=== PATIENT | female | born 1970 | race Caucasian/White ===

== ENCOUNTER 2016-03-15 16:56 | Emergency (ER) | payer BC ==
[~2016-03-15] VITALS: Wt 88.0 kg
[~2016-03-15 16:56] MED LIST: DOCU100T7 PO; FERR-55 PO; GLIP5TAB13 PO; HYDR-3498 PO; IBUP-1542 PO; INSU100C5 SQ; LISI10TA2 PO; METF-388 PO; PANT40TA4 PO
[2016-03-15 18:50] LABS: URINE BLOOD (Dip) POC Negative (NEGATIVE)
[2016-03-15] MEDS ORDERED: FLUC150T17 PO (19:06)
[2016-03-15] MEDS ORDERED: NYST15CR28 TOP (19:10)
[2016-03-15] MEDS ORDERED: NAPR-260 PO (19:11)
--- NOTE | 2016-03-15 19:26 | ERD ---
ER Documentation Chief Complaint Date/Time DATE: 03/15/16 TIME: 19:18 Chief Complaint right flank pain for the past 4 days. no n/v. HPI This patient is a 45-year-old female presenting to the emergency department for pain in the right mid back for 5 days. She additionally reports hematuria, burning while urinating and itching of the vagina for 2 weeks. She reports a history of past yeast infections treated successfully with Diflucan. She denies a history of pyelonephritis. She denies fevers, chills, chest pain, shortness of breath, and all other symptoms at this time. There are no other alleviating or exacerbating factors at this time. ROS All systems reviewed and are negative except as per history of present illness. Medications Home Meds Active Scripts Naproxen* (Naprosyn*) 500 Mg Tablet, 500 MG PO BID Y for PAIN AND/OR INFLAMMATION, #20 TAB Prov:HARSHAD LIAO PA-C 03/15/16 Nystatin* (Nystatin*) 15 Gm Cr, 1 APPLIC TOP QHS for 7 Days, #1 TUB Prov:HARSHAD LIAO PA-C 03/15/16 Fluconazole* (Diflucan*) 150 Mg Tablet, 150 MG PO ONCE, #1 TAB Prov:HARSHAD LIAO PA-C 03/15/16 Hydrocodone Bit-Acetaminophen* ([place]*) 5-325 Mg Tab, 1 TAB PO Q6 Y for PAIN, # 7 TAB Prov:KETAN MCKEON 09/19/15 Ibuprofen* (Motrin*) 600 Mg Tab, 600 MG PO Q6, #30 TAB Prov:KETAN MCKEON 09/19/15 Reported Medications Insulin Glargine,Hum.rec.anlog (Lantus) 100 U/Ml Cartridge, 10 SQ HS 12/08/11 Pantoprazole* (Pantoprazole*) 40 Mg Tablet.dr, 40 MG PO DAILY 12/08/11 Docusate Sodium (Docusate Sodium) 100 Mg Tablet, 100 MG PO DAILY 12/08/11 Ferrous Sulfate* (Ferrous Sulfate*) 325 Mg Tablet, 325 MG PO BID 12/08/11 Metformin Hcl* (Metformin Hcl*) 1,000 Mg Tablet, 1000 MG PO BID 12/08/11 Lisinopril* (Lisinopril*) 10 Mg Tablet, 10 MG PO DAILY 10/18/11 Glipizide* (Glipizide*) 5 Mg Tablet, 5 MG PO BID 01/06/11 Allergies Allergies: Coded Allergies: No Known Allergies (Verified Allergy, Unknown, 04/11/14) PMhx/Soc History of Surgery: Yes ( HYSTERECTOMY,RIGHT EAR SURGERY) Anesthesia Reaction: No Hx Neurological Disorder: No Hx Respiratory Disorders: No Hx Cardiac Disorders: No Hx Psychiatric Problems: No Hx Miscellaneous Medical Probl: Yes (DM, GERD) Hx Alcohol Use: No Hx Substance Use: No Hx Tobacco Use: No Physical Exam Vitals Vital Signs Date Time Temp Pulse Resp B/P Pulse Ox O2 Delivery O2 Flow Rate FiO2 03/15/16 17:06 98.5 78 20 137/84 97 Physical Exam Const: The patient is resting comfortably in no acute distress. Head: Atraumatic Eyes: Normal Conjunctiva ENT: Normal External Ears, Nose and Mouth. Neck: Full range of motion. No meningismus. Resp: Clear to auscultation bilaterally Cardio: Regular rate and rhythm, no murmurs Abd: The abdomen is obese, soft, nontender, and nondistended. Skin: No petechiae or rashes Back: No midline, flank, or CVA tenderness. Ext: No cyanosis, or edema Neur: Awake and alert Psych: Normal Mood and Affect Results 24 hrs Laboratory Tests Test 03/15/16 18:51 Bedside Urine Blood Negative Bedside Urine Glucose (UA) 0.50% Bedside Urine Ketones (LAB) Trace Bedside Urine Leukocyte Esterase (L Negative Bedside Urine Nitrite (LAB) Negative Bedside Urine Protein (LAB) Negative Bedside Urine pH (LAB) 5.5 Procedures/MDM 45-year-old female presenting to the emergency department for right-sided mid back pain and vaginal itching for 2 weeks. On physical examination there is no CVA tenderness and there is no tenderness to palpation of the paraspinal muscles. On urine dip there is no sign of urinary tract infection or hematuria. Based on history and physical examination I believe the patient has vaginal itching secondary to vaginal candidiasis. Due to the fact of no findings on urinalysis, I have ruled out nephrolithiasis, pyelonephritis, and other urinary tract abnormalities. The patient will be treated as an outpatient with prescriptions for topical antifungal cream as well as Diflucan. The patient also be given a prescription for naproxen to take as needed for back pain. I believe the patient's back pain is musculoskeletal in etiology as there is no finding related to the kidneys on urine dip. The patient agrees with the plan for discharge and she is stable currently. All questions and concerns have been addressed. Departure Diagnosis: Primary Impression: Back pain Additional Impression: Vaginal candidiasis Condition: Stable Patient Instructions: Vaginal Infection: Understanding the Vaginal Environment , Back Pain (Acute Or Chronic) Additional Instructions: FOLLOW UP WITH YOUR PRIMARY CARE PHYSICIAN TOMORROW.Return to this facility if you are not improving as expected. Take all medicines as directed. HARSHAD LIAO PA-C Mar 15, 2016 19:26
== END 2016-03-15 19:21 | disposition home or self-care (01) ==
LOC: FTE 16:56
DX: M54.9 Dorsalgia, unspecified (principal); B37.3 Candidiasis of vulva and vagina; E11.9 Type 2 diabetes mellitus without complications; Z79.4 Long term (current) use of insulin; Z79.84 Long term (current) use of oral hypoglycemic drugs
CPT/HCPCS: 81003; Z7502; 99284